=== PATIENT | male | born 1970 | race African-American/Black ===

== ENCOUNTER 2021-01-04 05:48 | Emergency (ER) | payer OTHER ==
[~2021-01-04] VITALS: Ht 167.6 cm; Wt 59.0 kg
[2021-01-04] MEDS ORDERED: PERCOCET 5-3251 EACH PO (06:12)
[2021-01-04] MEDS ORDERED: AMOXICILLIN875 MG PO (06:12)
[2021-01-04] MEDS ORDERED: PERIDEX 0.12%473 M1 SWISH&SPIT (06:12)
[2021-01-04 06:43] VITALS: BP 154/96
== END 2021-01-04 06:46 | disposition home or self-care (01) ==
LOC: ER 05:48
DX: K02.9 Dental caries, unspecified (principal)

== ENCOUNTER 2021-01-06 05:14 | Emergency (ER) | payer OTHER ==
[~2021-01-06] VITALS: Ht 167.6 cm; Wt 59.0 kg
[~2021-01-06 05:14] MED LIST: AMOXICILLIN875 MG PO; PERCOCET 5-3251 EACH PO; PERIDEX 0.12%473 M1 SWISH&SPIT
[2021-01-06 06:15] LABS: BASOPHILS 0.9 % (0.0-2.0); EOSINOPHILS 0.7 % (0.0-3.0); HEMATOCRIT 43.9 % (42.0-52.0); HEMOGLOBIN 14.3 gm/dL (14.0-18.0); LYMPHOCYTES 8.7 % (24.0-44.0); MCH 25.1 pg (26.0-34.0); MCHC 32.6 g/dL (28.0-37.0); MONOCYTES 8.6 % (1.0-8.0); PLATELET COUNT 267 thou/uL (150-400); POLYS 81.1 % (36.0-66.0); RBC 5.69 mil/uL (4.50-6.00); RDW 14.7 % (10.5-14.5); WBC 14.8 thou/uL (4.0-11.0)
[2021-01-06 06:25] LABS: CALCIUM 9.2 mg/dL (8.5-10.1); CREATININE 1.1 mg/dL (0.7-1.3); POTASSIUM 4.1 mmol/L (3.5-5.1)
[2021-01-06] MEDS ORDERED: AUGMENTIN 875-1 EACH PO (09:17)
[2021-01-06 09:20] VITALS: BP 122/86
== END 2021-01-06 09:20 | disposition home or self-care (01) ==
LOC: ER 05:14
PROVIDERS: Emergency Medicine
DX: K04.7 Periapical abscess without sinus (principal); Z79.899 Other long term (current) drug therapy